=== PATIENT | female | born 1985 | race African-American/Black ===

== ENCOUNTER 2020-06-05 17:50 | Emergency (ER) | payer SELFPAY ==
[~2020-06-05] VITALS: Ht 162.6 cm; Wt 118.0 kg
[2020-06-05 19:57] LABS: BILIRUBIN,URINE NEGATIVE (NEG); CLARITY,URINE CLEAR; COLOR,URINE YELLOW; NITRITE,URINE NEGATIVE (NEG); PROTEIN,URINE NEGATIVE (NEG-TRACE); UROBILINOGEN,URINE 0.2 mg/dL (0.2 mg/dL)
[2020-06-05 20:12] LABS: BACTERIA,URINE MODERATE /HPF (0-FEW); RBC,URINE RARE /HPF (0-2); SQUAMOUS EPITHELIAL CELL,UR MOD /LPF; TRICHOMONAS,URINE PRESENT; WBC,URINE 20-40 /HPF (0-4)
[2020-06-05 20:29] VITALS: BP 121/62
[2020-06-05] MEDS ORDERED: CEPH-264 PO (20:44)
[2020-06-05] MEDS ORDERED: METR-34 PO (20:44)
[2020-06-05] MEDS ORDERED: AZITHROMYCIN 250 MG TABLET. PO ONE (20:45)
[2020-06-05] MEDS ORDERED: cefTRIAXone IM 250 MG VIAL IM ONE (20:45)
--- NOTE | 2020-06-05 20:47 | PHYS DOC ---
Past Medical History Past Medical History: Asthma, Migraines Additional Past Medical Histor: carpal tunnel Past Surgical History: Other Additional Past Surgical Histo: Left leg surgery, surgery Smoking Status: Never Smoker Alcohol Use: None General Adult EDM: Chief Complaint: ABDOMINAL PAIN HPI: HPI: Patient is a 34 year old AA female who presents to the emergency department with complaints of right flank pain, with increased urinary frequency, and dysuria for the last 2 days. She denies any irregular vaginal discharge, vagina l bleeding, or vaginal odor. She denies any nausea, vomiting, diarrhea, fever, cough, shortness of breath, rash, or swelling of her extremities. She currently rates her pain 8 out of 10 on the pain scale, she denies any alleviating or exacerbating factors. Review of Systems: Review of Systems: Constitutional: Denies fever or chills. [] HENT: Denies nasal congestion or sore throat. [] Respiratory: Denies cough or shortness of breath. [] Cardiovascular: Denies chest pain or edema. [] GI: Denies nausea, vomiting, or diarrhea. [] : Reports right flank pain and dysuria, see HPI Musculoskeletal: Denies or joint pain. [] Integument: Denies rash. [] Neurologic: Denies headache Psychiatric: Denies depression or anxiety. [] Heart Score: Risk Factors: Risk Factors: DM, Current or recent (<one month) smoker, HTN, HLP, family history of CAD, obesity. Risk Scores: Score 0 - 3: 2.5% MACE over next 6 weeks - Discharge Home Score 4 - 6: 20.3% MACE over next 6 weeks - Admit for Clinical Observation Score 7 - 10: 72.7% MACE over next 6 weeks - Early Invasive Strategies Allergies: Allergies: Allergies Coded Allergies Type Severity Reaction Last Updated Verified iodine Allergy Unknown 06/05/20 Yes morphine Allergy Unknown 06/05/20 Yes Physical Exam: PE: Constitutional: Well developed, well nourished, no acute distress, non-toxic appearance. [] HENT: Normocephalic, atraumatic, bilateral external ears normal, nose normal. [] Eyes: PERRLA, EOMI, conjunctiva normal, no discharge. [] Neck: Normal range of motion, no stridor. [] Cardiovascular:Heart rate regular rhythm Lungs & Thorax: Respirations even and unlabored, no retractions, no respiratory distress Abdomen: soft, no tenderness, no masses Back: No CVA tenderness Skin: Warm, dry, no erythema, no rash. [] Extremities: No cyanosis, ROM intact, no edema. [] Neurologic: Alert and oriented X 3, no focal deficits noted. [] Psychologic: Affect normal, judgement normal, mood normal. [] Current Patient Data: Labs: Laboratory Tests Test 06/05/20 19:49 06/05/20 19:54 Urine Collection Type Unknown Urine Color Yellow Urine Clarity Clear Urine pH 5.0 (<5.0-8.0) Urine Specific Slater 1.025 (1.000-1.030) Urine Protein Negative mg/dL (NEG-TRACE) Urine Glucose (UA) Negative mg/dL (NEG) Urine Ketones (Stick) Negative mg/dL (NEG) Urine Blood Small (NEG) Urine Nitrite Negative (NEG) Urine Bilirubin Negative (NEG) Urine Urobilinogen Dipstick 0.2 mg/dL (0.2 mg/dL) Urine Leukocyte Esterase Small (NEG) Urine RBC Rare /HPF (0-2) Urine WBC 20-40 /HPF (0-4) Urine Squamous Epithelial Cells Mod /LPF Urine Bacteria Moderate /HPF (0-FEW) Urine Mucus Mod /LPF Urine Trichomonas Present POC Urine HCG, Qualitative Hcg negative (Negative) Vital Signs: Vital Signs Date Time Temp Pulse Resp B/P (MAP) Pulse Ox O2 Delivery O2 Flow Rate FiO2 06/05/20 18:05 98.6 115 16 142/68 (92) 98 Room Air 98.6 EKG: EKG: [] Radiology/Procedures: Radiology/Procedures: [] Course & Med Decision Making: Course & Med Decision Making Pertinent Labs and Imaging studies reviewed. (See chart for details) 34-year-old female presents to the emergency department with complaints of right flank pain and dysuria. UA is concerning for urinary tract infection with 20-40 white blood cells, moderate bacteria, and trichomonas. I advised the patient of the urinary tract infection and the trichomonas, I offered a pelvic exam to the patient however the patient declined a pelvic exam and asked if there is any other way we could test her for gonorrhea and chlamydia. I will order a gonorrhea and chlamydia test off of her urine. Patient agreed to prophylactic treatment for gonorrhea and chlamydia. Gonorrhea and chlamydia test results are pending. Patient was treated prophylactically with 250 mg of IM Rocephin, and 1 g of PO Zithromax. Patient was instructed to avoid having intercourse until the results of gonorrhea and chlamydia testing are available, patient was notified that these results would not be available for 48 hours. If one or both of these tests is positive, patient needs to refrain from intercourse for approximately 1 week following the treatment of any current partners. Prescriptions written for Flagyl and Keflex. Patient encouraged to follow-up with her primary care doctor, avoid bladder irritants, and increase clear fluids. Patient verbalized an understanding of home care, medications, follow-up, and return to ED instructions and was in agreement with the plan of care. Dragon Disclaimer: Dragon Disclaimer: This electronic medical record was generated, in whole or in part, using a voice recognition dictation system. Departure Departure Impression: Primary Impression: UTI (urinary tract infection) in in first trimester Additional Impressions: Infection due to trichomonas Contact with and (suspected) exposure to infections with a predominantly sexual mode of transmission Disposition: HOME, SELF-CARE Condition: STABLE Referrals: NO PCP (PCP) Patient Instructions: Trichomoniasis, Urinary Tract Infection, Sfgg-of-[place] Additional Instructions: Fill prescription(s) and use as directed. Avoid bladder irritants such as caffeine, carbonation, and spicy foods. Increase clear fluids. Recommend that you go to your local health department or primary care provider for comprehensive sexually transmitted disease testing. Follow-up with your primary care doctor if symptoms persist, return to ER if symptoms worsen. Scripts Cephalexin (KEFLEX) 500 Mg Capsule 500 MG PO BID for 7 Days, #14 CAP 0 Refills Prov: ELVIS ROUSSEAU APRN 06/05/20 Metronidazole (METRONIDAZOLE) 500 Mg Tablet 1 TAB PO BID for 7 Days, #14 TAB 0 Refills Prov: ELVIS ROUSSEAU APRN 06/05/20 Justicifation of Admission Dx: Justifications for Admission: Justification of Admission Dx: N/A ELVIS ROUSSEAU APRN Jun 05, 2020 20:47
[2020-06-05] MEDS ORDERED: NAPROXEN 500 MG TABLET PO STA (20:53)
[2020-06-05] MEDS ORDERED: IBUPROFEN 200 MG TABLET. PO ONE (20:54)
== END 2020-06-05 21:04 | disposition home or self-care (01) ==
LOC: ER 17:50
DX: O23.41 Unspecified infection of urinary tract in pregnancy, first trimester (principal); A59.9 Trichomoniasis, unspecified; Z20.2 Contact with and (suspected) exposure to infections with a predominantly sexual mode of transmission; O99.511 Diseases of the respiratory system complicating pregnancy, first trimester; J45.909 Unspecified asthma, uncomplicated; G43.909 Migraine, unspecified, not intractable, without status migrainosus; Z3A.01 Less than 8 weeks gestation of pregnancy; Z88.5 Allergy status to narcotic agent; Z88.8 Allergy status to other drugs, medicaments and biological substances
CPT/HCPCS: 81001; 81025; 87086; 87491; 87591; 96372; 99283; J0696; 87077

== ENCOUNTER 2020-09-09 13:38 | Emergency (ER) | payer SELFPAY ==
[~2020-09-09] VITALS: Ht 165.1 cm; Wt 109.0 kg
[~2020-09-09 13:38] MED LIST: CEPH-264 PO; METR-34 PO
--- NOTE | 2020-09-09 16:03 | ED.ADGEN ---
Past Medical History Past Medical History: Asthma, Bronchitis, Migraines Additional Past Medical Histor: carpal tunnel Past Surgical History: Other Additional Past Surgical Histo: Left leg surgery, surgery Smoking Status: Never Smoker Alcohol Use: None General Adult EDM: Chief Complaint: EYE PROBLEMS HPI: HPI: Patient is a 34 year old AA female who presents to the emergency department with complaints of left eye redness and pain that began yesterday. She reports that there is a sensation of something in her eye but she states that her eyes are very sensitive to light. She reports that her vision has been blurred but she states that she thinks is because of the tearing. She denies any injury to her eye. Patient states that she does wear colored contacts but has not been able to wear them for the last 2 days. She currently rates her pain 8 out of 10 on the pain scale, she denies any alleviating factors.625Nollid! Review of Systems: Review of Systems: Complete ROS is negative unless otherwise noted in HPI. Allergies: Allergies: Allergies Coded Allergies Type Severity Reaction Last Updated Verified iodine Allergy Unknown 06/05/20 Yes morphine Allergy Unknown 06/05/20 Yes Physical Exam: PE: See Above Constitutional: Well developed, well nourished, no acute distress, non-toxic appearance, obese. [] HENT: Normocephalic, atraumatic, bilateral external ears normal, nose normal. [] Eyes: PERRLA, EOMI, right eye conjunctiva normal without discharge; left eye injected with 1 mm ulceration noted over the pupil, no visible foreign body, consensual photophobia is present, watery discharge noted. [] Neck: Normal range of motion, no stridor. [] Cardiovascular:Heart rate regular rhythm Lungs & Thorax: Respirations even and unlabored, no retractions, no respiratory distress Skin: Warm, dry, no erythema, no rash. [] Extremities: No cyanosis, ROM intact, no edema. [] Neurologic: Alert and oriented X 3, no focal deficits noted. [] Psychologic: Affect normal, judgement normal, mood normal. [] Current Patient Data: Vital Signs: Vital Signs Date Time Temp Pulse Resp B/P (MAP) Pulse Ox O2 Delivery O2 Flow Rate FiO2 09/09/20 16:05 72 148/71 (96) 99 09/09/20 14:50 98.0 18 Room Air 98.0 EKG: EKG: [] Heart Score: Risk Factors: Risk Factors: DM, Current or recent (<one month) smoker, HTN, HLP, family history of CAD, obesity. Risk Scores: Score 0 - 3: 2.5% MACE over next 6 weeks - Discharge Home Score 4 - 6: 20.3% MACE over next 6 weeks - Admit for Clinical Observation Score 7 - 10: 72.7% MACE over next 6 weeks - Early Invasive Strategies Radiology/Procedures: Radiology/Procedures: [] Course & Med Decision Making: Course & Med Decision Making I have reviewed the PA/LOCOMOTIVE ELECTRICIAN's note and Plan of Care. I was available for consultation as needed during the patient's visit in the emergency department. I agree with the clinical impression, plans and disposition.Pertinent Labs and Imaging studies reviewed. (See chart for details) [id number] spoke with lodge officer Dr. Lake about the patient presenting in the emergency room. I advised him of the concern for iritis, patient has consensual photophobia in the affected eye. Per Dr. Lake I will have the patient go directly to his office in the [facility] [address] for further evaluation. [] Dragon Disclaimer: Dragon Disclaimer: This electronic medical record was generated, in whole or in part, using a voice recognition dictation system. Departure Departure Impression: Primary Impression: Left eye pain Disposition: 01 DC HOME SELF CARE/HOMELESS Condition: STABLE Referrals: NO PCP (PCP) Geovanni LAKE MD Additional Instructions: Please go directly to Dr. Farr's office for evaluation by specialist. Return to the ER if symptoms worsen. ELVIS ROUSSEAU APRN Sep 09, 2020 16:03 ANDERSON SALAMANCA MD Sep 10, 2020 06:11
[2020-09-09 16:05] VITALS: BP 148/71
== END 2020-09-09 16:05 | disposition home or self-care (01) ==
LOC: ER 13:38
DX: H57.12 Ocular pain, left eye (principal); J45.909 Unspecified asthma, uncomplicated; G43.909 Migraine, unspecified, not intractable, without status migrainosus; Z98.890 Other specified postprocedural states; Z88.6 Allergy status to analgesic agent; Z91.041 Radiographic dye allergy status
CPT/HCPCS: 99281

== ENCOUNTER 2021-08-08 15:45 | Emergency (ER) | payer SELFPAY ==
[~2021-08-08] VITALS: Ht 162.6 cm; Wt 170.0 kg
[2021-08-08] MEDS: fentaNYL PF VIAL 100 MCG/2 ML VIAL IVP ONE (19:54)
[2021-08-08] MEDS: IV NORMAL SALINE 1000ML BAG 1,000 ML IV ONE (19:54)
[2021-08-08] MEDS: ONDANSETRON PF 4 MG/2 ML VIAL. IVP ONE (19:55)
[2021-08-08 19:57] LABS: BASO % 0 % (0-3); EOS % 0 % (0-3); HEMATOCRIT 37.9 % (36.0-47.0); HEMOGLOBIN 12.6 g/dL (12.0-15.5); LYMPH # 0.5 x10^3/uL (1.0-4.8); LYMPH % 4 % (24-48); MEAN CORPUSCULAR HEMOGLOBIN 27 pg (25-35); MEAN CORPUSCULAR HGB CONC 33 g/dL (31-37); MEAN CORPUSCULAR VOLUME 82 fL (79-100); MONO # 0.4 x10^3/uL (0.0-1.1); MONO % 3 % (0-9); NEUT # 11.4 x10^3/uL (1.8-7.7); NEUT % 92 % (31-73); PLATELET COUNT 290 x10^3/uL (140-400); RED BLOOD COUNT 4.65 x10^6/uL (3.50-5.40); RED CELL DISTRIBUTION WIDTH 14.9 % (11.5-14.5); WHITE BLOOD COUNT 12.4 x10^3/uL (4.0-11.0)
[2021-08-08 20:17] LABS: % BANDS 11 % (0-9); % LYMPHS 8 % (24-48); % MONOS 1 % (0-10); % SEGS 80 % (35-66)
[2021-08-08 20:18] LABS: PLT ESTIMATE ADEQUATE (ADEQUATE)
[2021-08-08 20:19] LABS: POLYCHROMASIA SLIGHT
--- NOTE | 2021-08-08 20:34 | RAD ---
EXAM: RIGHT UPPER QUADRANT ULTRASOUND. HISTORY: Right upper quadrant pain. COMPARISON: None. FINDINGS: Sonographic evaluation of the right upper quadrant was performed. Hyperechogenicity of the hepatic parenchyma is consistent with diffuse hepatic steatosis. The liver i s enlarged spanning at least 20.4 cm. There are no focal lesions. The gallbladder is unremarkable without evidence of stones, wall thickening or pericholecystic fluid. The telecommunications specialist notes tenderness over the gallbladder on scanning. The common duct is not visualize d and no biliary dilatation is identified. The visualized portions of the head and body of the pancre as reveal no abnormality. The right kidney measures 12.1 cm. Cortical thickness and echogenicity are preserved. There is no hyd ronephrosis. The visualized portions of the abdominal aorta and inferior vena cava are grossly patent and normal i n caliber. IMPRESSION: 1. Diffuse hepatic steatosis and hepatomegaly. 2. The sonography notes tenderness overlying the gallbladder, but there is no grayscale evidence of a cute cholecystitis. Electronically signed by: Marily Rcok MD (08/08/2021 8:32 PM) [facility]
[2021-08-08 20:51] LABS: CALCIUM 8.5 mg/dL (8.5-10.1); CREATININE 0.9 mg/dL (0.6-1.0); GFR 86.7; POTASSIUM 3.6 mmol/L (3.5-5.1); PREG TEST PT QUAL NEGATIVE (NEG)
[2021-08-08 20:59] LABS: ALBUMIN 3.5 g/dL (3.4-5.0); ALBUMIN/GLOBULIN RATIO 0.9 (1.0-1.7); TOTAL BILIRUBIN 0.5 mg/dL (0.2-1.0); TOTAL PROTEIN 7.5 g/dL (6.4-8.2)
--- NOTE | 2021-08-08 21:33 | PHYS DOC ---
Past Medical History Past Medical History: Asthma, Bronchitis, Migraines Additional Past Medical Histor: carpal tunnel Past Surgical History: Other Additional Past Surgical Histo: Left leg surgery, surgery Smoking Status: Unknown if ever smoked Alcohol Use: None General Adult EDM: Chief Complaint: PELVIC PAIN HPI: HPI: Patient is a 35 year old female who presents with 1 day history of right-sided abdominal pain. She reports pain in her right upper quadrant, right mid abdomen, right flank and right lower quadrant. She reports mild nausea but no vomiting. She reports that she does not have much of an appetite. Reports generalized malaise and fatigue also starting today. She reports diffuse body aches and flank pain. She denies urinary symptoms. She denies constipation or diarrhea. She denies rash. She denies chest pain or dyspnea. She denies cou gh. Any known sick contacts or travel history. She is not certain of her LMP, though she reports it may have been either in May or June. She initially reported no abdominal surgeries, but then reports that she had a " surgery". I asked her about the possibility of ectopic , and she is unable to articulate any details of this. Review of Systems: Review of Systems: Constitutional: Fevers and chills reported. [] Eyes: Denies change in visual acuity. [] HENT: Denies nasal congestion or sore throat. [] Respiratory: Denies cough or shortness of breath. [] Cardiovascular: Denies chest pain or edema. [] GI: Reports abdominal pain, nausea, no vomiting, no diarrhea constipation. : Denies urinary symptoms or vaginal bleeding. Musculoskeletal: Ports diffuse myalgias, bilateral back and flank pain. No joint pain or swelling. Integument: Denies rash. [] Neurologic: Denies headache, focal weakness or sensory changes. [] Endocrine: Denies polyuria or polydipsia. [] Lymphatic: Denies swollen glands. [] Psychiatric: Denies depression or anxiety. [] Heart Score: C/O Chest Pain: No Risk Factors: Risk Factors: DM, Current or recent (<one month) smoker, HTN, HLP, family history of CAD, obesity. Risk Scores: Score 0 - 3: 2.5% MACE over next 6 weeks - Discharge Home Score 4 - 6: 20.3% MACE over next 6 weeks - Admit for Clinical Observation Score 7 - 10: 72.7% MACE over next 6 weeks - Early Invasive Strategies Current Medications: Current Medications Medications (Trade) Dose Ordered Sig/Lani Start Time Stop Time Status Last Admin Dose Admin Fentanyl Citrate (Fentanyl 2ml Vial) 50 mcg 1X ONCE 08/08/21 19:00 08/08/21 19:11 DC 08/08/21 19:54 50 MCG Ondansetron HCl (Zofran) 4 mg 1X ONCE 08/08/21 19:00 08/08/21 19:11 DC 08/08/21 19:55 4 MG Sodium Chloride 1,000 ml @ 1,000 mls/hr 1X ONCE 08/08/21 19:00 08/08/21 19:59 DC 08/08/21 19:54 1,000 MLS/HR Allergies: Allergies: Allergies Coded Allergies Type Severity Reaction Last Updated Verified iodine Allergy Unknown 06/05/20 Yes morphine Allergy Unknown 06/05/20 Yes Physical Exam: PE: Constitutional: Well developed, well nourished, no acute distress, non-toxic appearance. [] HENT: Normocephalic, atraumatic, mucous membranes are moist Eyes: PERRL, EOMI, conjunctiva normal, nonicteric, no discharge. [] Neck: Normal range of motion, no tenderness, supple, no stridor. [] Cardiovascular: Cardiac regular, +2 radial and posterior tibial pulses bilaterally, well-perfused appearing. No illogic peripheral edema. Lungs & Thorax: Bilateral breath sounds clear to auscultation [] Abdomen: Diminished obese, soft, nondistended, normal bowel sounds, diffuse tenderness of the right upper quadrant, right mid abdomen, right flank, and right lower quadrant. Minimal voluntary guarding in the right upper quadrant, negative Clark's, no rebound tenderness. No flank or abdominal ecchymoses no flank or abdominal rash. Skin: Warm, dry, no erythema, no rash. [] Back: No palpable tenderness, deformity or step-off, full range of motion Extremities: No tenderness, no cyanosis, no clubbing, ROM intact, no edema. [] Neurologic: Alert and oriented X 3, normal motor function, normal sensory func tion, no focal deficits noted. [] Psychologic: Flat affect. Current Patient Data: Labs: Laboratory Tests Test 08/08/21 19:45 08/08/21 20:28 White Blood Count 12.4 x10^3/uL (4.0-11.0) H Red Blood Count 4.65 x10^6/uL (3.50-5.40) Hemoglobin 12.6 g/dL (12.0-15.5) Hematocrit 37.9 % (36.0-47.0) Mean Corpuscular Volume 82 fL (79-100) Mean Corpuscular Hemoglobin 27 pg (25-35) Mean Corpuscular Hemoglobin Concent 33 g/dL (31-37) Red Cell Distribution Width 14.9 % (11.5-14.5) H Platelet Count 290 x10^3/uL (140-400) Neutrophils (%) (Auto) 92 % (31-73) H Lymphocytes (%) (Auto) 4 % (24-48) L Monocytes (%) (Auto) 3 % (0-9) Eosinophils (%) (Auto) 0 % (0-3) Basophils (%) (Auto) 0 % (0-3) Neutrophils # (Auto) 11.4 x10^3/uL (1.8-7.7) H Lymphocytes # (Auto) 0.5 x10^3/uL (1.0-4.8) L Monocytes # (Auto) 0.4 x10^3/uL (0.0-1.1) Eosinophils # (Auto) 0.0 x10^3/uL (0.0-0.7) Basophils # (Auto) 0.0 x10^3/uL (0.0-0.2) Segmented Neutrophils % 80 % (35-66) H Band Neutrophils % 11 % (0-9) H Lymphocytes % 8 % (24-48) L Monocytes % 1 % (0-10) Platelet Estimate Adequate (ADEQUATE) Polychromasia Slight Lactic Acid Level 2.8 mmol/L (0.4-2.0) H Sodium Level 135 mmol/L (136-145) L Potassium Level 3.6 mmol/L (3.5-5.1) Chloride Level 100 mmol/L (98-107) Carbon Dioxide Level 24 mmol/L (21-32) Anion Gap 11 (6-14) Blood Urea Nitrogen 7 mg/dL (7-20) Creatinine 0.9 mg/dL (0.6-1.0) Estimated GFR (Cockcroft-Gault) 86.7 BUN/Creatinine Ratio 8 (6-20) Glucose Level 118 mg/dL (70-99) H Calcium Level 8.5 mg/dL (8.5-10.1) Total Bilirubin 0.5 mg/dL (0.2-1.0) Aspartate Amino Transferase (AST) 21 U/L (15-37) Alanine Aminotransferase (ALT) 34 U/L (14-59) Alkaline Phosphatase 40 U/L (46-116) L Total Protein 7.5 g/dL (6.4-8.2) Albumin 3.5 g/dL (3.4-5.0) Albumin/Globulin Ratio 0.9 (1.0-1.7) L Lipase 40 U/L (73-393) L Serum Test, Qualitative Negative (NEG) Laboratory Tests 08/08/21 19:45 Laboratory Tests 08/08/21 20:28 Vital Signs: Vital Signs Date Time Temp Pulse Resp B/P (MAP) Pulse Ox O2 Delivery O2 Flow Rate FiO2 08/08/21 19:54 16 97 08/08/21 18:40 100.1 119 136/60 (85) Room Air 100.1 EKG: EKG: [] Radiology/Procedures: Radiology/Procedures: IMAGING REPORT Signed PATIENT: CRUZ LARSON ACCOUNT: [id number] : 1985 LOCATION: ER AGE: 35 SEX: F EXAM STATUS: REG ER ORD. PHYSICIAN: RAFA PIPER DO REASON: RUQ abdominal pain PROCEDURE: ABDOMEN LTD EXAM: RIGHT UPPER QUADRANT ULTRASOUND. HISTORY: Right upper quadrant pain. COMPARISON: None. FINDINGS: Sonographic evaluation of the right upper quadrant was performed. Hyperechogenicity of the hepatic parenchyma is consistent with diffuse hepatic steatosis. The liver is enlarged spanning at least 20.4 cm. There are no focal lesions. The gallbladder is unremarkable without evidence of stones, wall thickening or pericholecystic fluid. The roto gravure press operator notes tenderness over the gallbladder on scanning. The common duct is not visualized and no biliary dilatation is identified. The visualized portions of the head and body of the pancreas reveal no abnormality. The right kidney measures 12.1 cm. Cortical thickness and echogenicity are preserved. There is no hydronephrosis. The visualized portions of the abdominal aorta and inferior vena cava are grossly patent and normal in caliber. IMPRESSION: 1. Diffuse hepatic steatosis and hepatomegaly. 2. The sonography notes tenderness overlying the gallbladder, but there is no grayscale evidence of acute cholecystitis. Electronically signed by: Marily Rock MD (08/08/2021 8:32 PM) [facility] DICTATED and SIGNED BY: JONATHAN ROCK MD DATE: 08/08/[id number] 0 IMAGING REPORT Signed PATIENT: CRUZ LARSON ACCOUNT: [id number] : 1985 LOCATION: ER AGE: 35 SEX: F EXAM STATUS: REG ER ORD. PHYSICIAN: RAFA PIPER DO REASON: right sided abdominal pain, OMNI 300, 75 ML IV PROCEDURE: CT ABD PELV W/ IV CONTRST ONLY PQRS Compliance Statement: One or more of the following individualized dose reduction techniques were utilized for this examination: 1. Automated exposure control 2. Adjustment of the mA and/or kV according to patient size 3. Use of iterative reconstruction technique CT ABDOMEN+PELVIS W Clinical Indication: Reason: right sided abdominal pain, Comparison: None. Technique: Helical CT imaging of the abdomen and pelvis is performed after 75 cc of Omnipaque 300 IV contrast. Oral contrast not administered. Findings: Mild atelectasis in the bilateral lower lobes. The cardiac size is normal. There is fatty infiltration of the liver. There is hepatomegaly. Gallbladder, spleen, pancreas, adrenal glands, abdominal aorta, and kidneys are normal. The stomach is unremarkable. There is no dilated small bowel. The appendix is normal. No colon wall thickening is identified. No abdominal adenopathy or free fluid. There are subcentimeter retroperitoneal lymph nodes. Urinary bladder is normal. Uterus is anteverted. There is right ovary functional cyst measuring approximately 3.3 cm. There is no pelvic free fluid. No acute bone abnormality. IMPRESSION: 1. No acute abdominal or pelvic abnormality. The appendix is normal. 2. Fatty infiltration of the liver. Hepatomegaly. Electronically signed by: Sujit Valerio MD (08/08/2021 11:19 PM) [facility] DICTATED and SIGNED BY: SUJIT VALERIO MD DATE: 08/08/21 [id number] 0 Course & Med Decision Making: Course & Med Decision Making Pertinent Labs and Imaging studies reviewed. (See chart for details) Patient was given IV fluid. It took quite a bit of time to obtain IV access, and IV fluids were not administered for several hours after the patient arrived. It took several hours to obtain a urinalysis. Ultimately the patient was able to donate on her own. Abdominal ultrasound and CT of the abdomen did not demonstrate any acute infectious or surgical processes. The patient is given IV fluids, IV fentanyl, IV Toradol. She did have a fever here, which is resolved after the Toradol. Her tachycardia is improved. Rapid Covid antigen is obtained. She reports generalized body aches, but overall is feeling much better. Do not have an obvious other underlying etiology for her fever or abdominal pain symptoms. However, I do still strongly suspect the possibility of Covid. I explained sensitivity specificity issues regarding rapid antigen testing. I explained that she should behave accordingly, she should quarantine at home. I recommend repeat Covid swab in the next 3 to 5 days. Her significant other, with whom she lives, should also adhere to the same instructions. She has eaten food, she has been drinking fluids. She reports feeling much better. She has a nonsurgical abdominal exam. I have discussed all the findings, differential diagnosis and plan of care with her. No current indication for admission or further invasive exams. She requested a work note, so this is given. I told her to follow-up with her primary care physician. She verbalized understanding of instructions given. Natalie Disclaimer: Natalie Disclaimer: This electronic medical record was generated, in whole or in part, using a voice recognition dictation system. Departure Departure Impression: Primary Impression: Fever Additional Impressions: Right sided abdominal pain Dehydration Disposition: HOME / SELF CARE / HOMELESS Condition: IMPROVED Referrals: NO PCP (PCP) Patient Instructions: Abdominal Pain (Nonspecific), Fever of Unknown Origin, Fever, Adult Additional Instructions: Use the medication as directed for pain and nausea, respectively. Please stay well-hydrated. Your ultrasound and CAT scan today did not show any obvious evid ence of infection or inflammation in your abdomen. Your laboratory exams do indicate that she have at least a mild infection, and I still strongly suspect the possibility of Covid infection. It would be beneficial for you to consider repeat Covid swab in the next 3 to 5 days, as initial antigen testing can demonstrate false negative results. Outpatient PCR would be more accurate, and this is recommended. This may be done an outpatient. In the meantime, given the fact that she have a fever and no obvious other source, Covid must be considered and he must quarantine at home, and this is true for any close contacts or people with whom you live, such as her significant other. You must not go to work. Return to the ER immediately for uncontrolled vomiting, dehydration, more severe pain, chest pain, difficulty breathing or any other concerns. Please follow-up with your primary care physician. Scripts Hydrocodone Bit/Acetaminophen (HYDROCODONE-APAP 5-325 ) 1 Tab Tablet 1 TAB PO PRN Q6HRS PRN for PAIN, #15 TAB 0 Refills Prov: RAFA PIPER DO 08/09/21 Ondansetron Hcl (ZOFRAN) 4 Mg Tablet 4 MG PO PRN TID PRN for VOMITING, #20 EA nausea/vomiting Prov: RAFA PIPER DO 08/09/21 RAFA PIPER DO Aug 08, 2021 21:33
[2021-08-08] MEDS ORDERED: CONTRAST GIVEN. MC PRN (22:00)
[2021-08-08 22:26] LABS: BILIRUBIN,URINE NEGATIVE (NEG); CLARITY,URINE CLEAR; COLOR,URINE YELLOW; NITRITE,URINE NEGATIVE (NEG); PH,URINE 5.5 (<5.0-8.0); PROTEIN,URINE NEGATIVE (NEG-TRACE); UROBILINOGEN,URINE 0.2 mg/dL (0.2 mg/dL)
[2021-08-08] MEDS ORDERED: diphenhydrAMINE 50 MG/ML VIAL IVP ONE (22:30)
[2021-08-08] MEDS ORDERED: methylPREDNISolone SOD SUCC PF 125 MG/2 ML VIAL. IV ONE (22:30)
[2021-08-08] MEDS ORDERED: FAMOTIDINE 20 MG/2 ML VIAL IVP ONE (22:30)
[2021-08-08] MEDS: KETOROLAC 15 MG/ML VIAL. IVP ONE (22:34)
[2021-08-08 22:43] LABS: AMORPHOUS SEDIMENT,UR PRESENT /HPF; BACTERIA,URINE 0 /HPF (0-FEW); RBC,URINE OCC /HPF (0-2); WBC,URINE OCC /HPF (0-4)
[2021-08-08] MEDS: IOHEXOL 300 MG/ML 100ML VIAL. IV ONE (22:49)
[2021-08-08] MEDS ORDERED: IV NORMAL SALINE 1000ML BAG 1,000 ML IV ONE (23:00)
--- NOTE | 2021-08-08 23:21 | RAD ---
PQRS Compliance Statement: One or more of the following individualized dose reduction techniques were utilized for this examinat ion: 1. Automated exposure control 2. Adjustment of the mA and/or kV according to patient size 3. Use of iterative reconstruction technique CT ABDOMEN+PELVIS W Clinical Indication: Reason: right sided abdominal pain, Comparison: None. Technique: Helical CT imaging of the abdomen and pelvis is performed after 75 cc of Omnipaque 300 IV contrast. Oral contrast not administered. Findings: Mild atelectasis in the bilateral lower lobes. The cardiac size is normal. There is fatty infiltration of the liver. There is hepatomegaly. Gallbladder, spleen, pancreas, adren al glands, abdominal aorta, and kidneys are normal. The stomach is unremarkable. There is no dilated small bowel. The appendix is normal. No colon wall t hickening is identified. No abdominal adenopathy or free fluid. There are subcentimeter retroperitone al lymph nodes. Urinary bladder is normal. Uterus is anteverted. There is right ovary functional cyst measuring appro ximately 3.3 cm. There is no pelvic free fluid. No acute bone abnormality. IMPRESSION: 1. No acute abdominal or pelvic abnormality. The appendix is normal. 2. Fatty infiltration of the liver. Hepatomegaly. Electronically signed by: Sujit Valerio MD (08/08/2021 11:19 PM) [facility]
[2021-08-09 02:00] VITALS: BP 107/55
[2021-08-09] MEDS ORDERED: ONDA4TAB7 PO (02:06)
[2021-08-09] MEDS ORDERED: HYDR-2761 PO (02:06)
[2021-08-09] MEDS: HYDROcodone/APAP 5/325MG 1 TAB TABLET PO ONE (02:30)
--- NOTE | 2021-08-09 16:31 | NUR ---
IP: Attempted to contact pt concerning covid results. No answer, left a voicemail to return the call.
--- NOTE | 2021-08-10 17:12 | NUR ---
IP: Pt returned my call. I informed her of the negative covid test. Pt verbalized understanding.
== END 2021-08-09 02:45 | disposition home or self-care (01) ==
LOC: ER 15:45
DX: E86.0 Dehydration (principal); R10.11 Right upper quadrant pain; R10.31 Right lower quadrant pain; J45.909 Unspecified asthma, uncomplicated; G43.909 Migraine, unspecified, not intractable, without status migrainosus; Z20.822 Contact with and (suspected) exposure to COVID-19; Z88.5 Allergy status to narcotic agent; Z88.8 Allergy status to other drugs, medicaments and biological substances
CPT/HCPCS: 36415; 74177; 76705; 80053; 81001; 83605; 83690; 84703; 85007; 85025; 87040; 87426; 96361; 96374; 96375; 99285; J1885; J2405; J3010; J7030; Q9967; U0003; U0005